=== PATIENT | female | born 1970 | race Caucasian/White ===

== ENCOUNTER 2017-08-30 19:58 | Emergency (ER) | payer SELFPAY ==
[~2017-08-30] VITALS: Ht 157.5 cm; Wt 97.5 kg
[~2017-08-30 19:58] MED LIST: AMLODIPINE BES2.5 M1 PO; ASPIRIN81 MG PO; HYD25 PO; LEVOTHYROXINE0.15 M2 PO; LISINOPRIL AND1 TA2 PO; LISINOPRIL30 MG PO; RANITIDINE HCL150 M1 PO
[2017-08-30 20:23] VITALS: Ht 157.5 cm; Wt 97.5 kg
[2017-08-30 22:00] LABS: BASOPHIL % 0.4 % (0-2); PLATELET COUNT 197 x10^3mcL (130-400); RED CELL DISTRIBUTION WIDTH 13.9 % (11.5-14.5)
[2017-08-30 22:12] LABS: CARBON DIOXIDE 29.1 mmol/L (21-32); CHLORIDE SERUM 99 mmol/L (98-107); CREATININE SERUM 1.2 mg/dL (0.6-1.0); GFR1 52 mL/min; GLUCOSE SERUM 107 mg/dL (74-106); POTASSIUM SERUM 3.5 mmol/L (3.5-5.1); SODIUM SERUM 135 mmol/L (136-145)
[2017-08-30 22:28] LABS: ALBUMIN 3.7 g/dL (3.4-5.0); ALKALINE PHOSPHATASE 79 U/L (46-116); ALT/SGPT 58 U/L (14-59); AMYLASE 46 U/L (25-115); AST/SGOT 64 U/L (15-37); BILIRUBIN TOTAL 0.22 mg/dL (0.20-1.00); LIPASE 107 IU/L (73-393); MAGNESIUM 2.1 mg/dL (1.8-2.4); TOTAL PROTEIN, SERUM 7.5 g/dL (6.4-8.2)
[2017-08-30 22:30] LABS: CHOLESTEROL 329 mg/dL (<200); HDL CHOLESTEROL 62 mg/dL (40-60)
[2017-08-30 22:44] LABS: T4(THYROXINE) < 0.5 ug/dL (4.7-13.3)
[2017-08-30 23:23] LABS: microscopic required? YES; urine erythrocyte 3+ (NEGATIVE)
[2017-08-30 23:37] LABS: AMPHETAMINE QUAL UR POSITIVE (NEG <=1000)
[2017-08-30 23:53] VITALS: BP 147/102
== END 2017-08-30 23:53 | disposition home or self-care (01) ==
LOC: ED 19:58
PROVIDERS: Emergency Medicine
DX: I10 Essential (primary) hypertension (principal); E03.9 Hypothyroidism, unspecified; F15.90 Other stimulant use, unspecified, uncomplicated; F17.210 Nicotine dependence, cigarettes, uncomplicated; Z71.6 Tobacco abuse counseling
CPT/HCPCS: 82962; 83880; 99406; J1885; J1940

== ENCOUNTER 2019-04-30 14:49 | Emergency (ER) | payer MEDICAID ==
[~2019-04-30] VITALS: Ht 157.5 cm; Wt 98.4 kg
[2019-04-30 15:34] VITALS: Ht 157.5 cm; Wt 98.4 kg
[2019-04-30 18:21] LABS: CALCIUM 8.6 mg/dL (8.5-10.1); CARBON DIOXIDE 36.1 mmol/L (21-32); CREATININE SERUM 1.6 mg/dL (0.6-1.0); POTASSIUM SERUM 3.3 mmol/L (3.5-5.1)
[2019-04-30 18:25] LABS: BASOPHIL % 0.5 % (0-2); PLATELET COUNT 199 x10^3mcL (130-400)
[2019-04-30 18:34] LABS: BILIRUBIN TOTAL 0.24 mg/dL (0.20-1.00); MAGNESIUM 2.3 mg/dL (1.8-2.4); TOTAL PROTEIN, SERUM 7.9 g/dL (6.4-8.2)
[2019-04-30 20:36] VITALS: BP 142/90
== END 2019-04-30 20:36 | disposition home or self-care (01) ==
LOC: ED 14:49
PROVIDERS: Emergency Medicine
DX: E03.9 Hypothyroidism, unspecified (principal); R63.5 Abnormal weight gain; E87.6 Hypokalemia; I10 Essential (primary) hypertension
CPT/HCPCS: 36415; 83880